=== PATIENT | female | born 1930 | race Caucasian/White ===

== ENCOUNTER → 2016-08-31 | Outpatient (CLI) | payer OTHER, BC ==
[~2016-08-31] MED LIST: ASPIR 8181 MG PO; CALCIUM 500 +1 EAC5 PO; CHLORDIAZEPOXIDE5 M2; COQ-10100 MG PO; COZAAR 50 MG TA50 M2; ESTER-C 500 MG1 EACH PO; FISH OIL 1,001000 M2 PO; FOSAMAX 70 MG T70 MG PO; GLUCOSAMINE &1 EAC1 PO; IMITREX 25 MG T25 M1 PO; LOPRESSOR25; MULTIVITAMINS1 EAC7 PO
== END ==
LOC: BC 01:55
DX: Z12.31 Encounter for screening mammogram for malignant neoplasm of breast (principal)

== ENCOUNTER → 2016-10-02 | Outpatient (CLI) | payer OTHER, BC | LOC: NUC 10:04 | DX: M81.0 Age-related osteoporosis without current pathological fracture (principal); Z78.0 Asymptomatic menopausal state; N91.2 Amenorrhea, unspecified ==

== ENCOUNTER 2017-01-02 12:46 | Inpatient (IN) | payer OTHER, BC ==
[~2017-01-02] VITALS: Ht 160 cm; Wt 56.2 kg
--- NOTE | ~2017-01-02 | EKG ---
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
[2017-01-02 13:00] VITALS: BP 168/84
[2017-01-02 13:52] LABS: URINE BILIRUBIN NEGATIVE (Negative); URINE BLOOD NEGATIVE (Negative); URINE COLOR YELLOW; URINE GLUCOSE-RANDOM* NEGATIVE (Negative); URINE KETONES NEGATIVE (Negative); URINE NITRITE NEGATIVE (Negative); URINE PROTEIN (DIPSTICK) NEGATIVE (Negative); URINE UROBILINOGEN 0.2 E.U./dl (0.2-1.0)
[2017-01-02 14:11] LABS: ABSOLUTE NEUTROPHILS 3.3 thou/uL (1.4-8.2); BASOPHILS 0.6 % (0.0-2.0); EOSINOPHILS 2.6 % (0.0-3.0); HEMOGLOBIN 14.5 gm/dL (12.0-15.0); LYMPHOCYTES 27.7 % (24.0-44.0); MANUAL DIFF NO; MCH 32.5 pg (26.0-34.0); MCHC 34.4 g/dL (28.0-37.0); MCV 94.6 fL (80.0-100.0); MONOCYTES 7.1 % (1.0-8.0); PLATELET COUNT 213 thou/uL (150-400); RBC 4.44 mil/uL (4.20-5.00); RDW 12.5 % (10.5-14.5); WBC 5.3 thou/uL (4.0-11.0)
[2017-01-02 14:18] LABS: ANION GAP 6 mmol/L (7-16); BUN 14 mg/dL (7-18); CALCIUM 9.9 mg/dL (8.5-10.1); CHLORIDE 95 mmol/L (98-107); CO2 30 mmol/L (21-32); CREATININE 0.6 mg/dL (0.6-1.0); GLUCOSE 85 mg/dL (74-106); POTASSIUM 4.2 mmol/L (3.5-5.1); SODIUM 131 mmol/L (136-145)
[2017-01-02 14:27] LABS: ALBUMIN 4.2 g/dL (3.4-5.0); ALKALINE PHOSPHATASE 64 U/L (46-116); SGOT 31 U/L (15-37); SGPT 29 U/L (30-65); TOTAL BILIRUBIN 0.6 mg/dL (<0.1-1.0); TOTAL PROTEIN 7.7 g/dL (6.4-8.2); TROPONIN-I < 0.04 ng/mL (<0.04-0.07)
[2017-01-02 15:07] VITALS: BP 168/84
[2017-01-02 17:00] VITALS: BP 174/85
[2017-01-02 20:25] VITALS: BP 161/77
[2017-01-03 01:10] VITALS: BP 123/71
[2017-01-03 05:29] VITALS: BP 134/80
[2017-01-03 06:47] LABS: HEMATOCRIT 39.8 % (37.0-47.0); HEMOGLOBIN 13.2 gm/dL (12.0-15.0); MCH 31.8 pg (26.0-34.0); MCHC 33.2 g/dL (28.0-37.0); MCV 95.8 fL (80.0-100.0); RBC 4.16 mil/uL (4.20-5.00); RDW 12.8 % (10.5-14.5); WBC 4.4 thou/uL (4.0-11.0)
[2017-01-03 07:06] LABS: ANION GAP 4 mmol/L (7-16); BUN 13 mg/dL (7-18); CALCIUM 8.6 mg/dL (8.5-10.1); CHLORIDE 100 mmol/L (98-107); CHOLESTEROL 158 mg/dL (<200); CO2 28 mmol/L (21-32); CREATININE 0.6 mg/dL (0.6-1.0); GLUCOSE 88 mg/dL (74-106); HDL CHOLESTEROL 61 mg/dL (>40); LDL CHOLESTEROL 89 mg/dL (<100); POTASSIUM 3.9 mmol/L (3.5-5.1); SODIUM 132 mmol/L (136-145); TC:HDL 2.6 Ratio (Not establshd); TRIGLYCERIDE 40 mg/dL (<150); VLDL 8 mg/dL (<40)
[2017-01-03 08:49] VITALS: BP 124/77
[2017-01-03 09:52] VITALS: BP 124/77
[2017-01-03 11:20] VITALS: BP 124/77
== END 2017-01-03 11:19 | disposition home or self-care (01) | DRG 69 ==
LOC: ER 12:46 → EROBS 15:41 → EDBD 15:41 → 3N 16:54
PROVIDERS: Hospitalist; Physician Assistant
DX: G45.9 Transient cerebral ischemic attack, unspecified (principal); R27.0 Ataxia, unspecified; I10 Essential (primary) hypertension; G43.909 Migraine, unspecified, not intractable, without status migrainosus; M81.0 Age-related osteoporosis without current pathological fracture; Z90.49 Acquired absence of other specified parts of digestive tract; Z88.2 Allergy status to sulfonamides; Z91.02 Food additives allergy status; Z79.82 Long term (current) use of aspirin; Z79.899 Other long term (current) drug therapy
CPT/HCPCS: 10096

== ENCOUNTER → 2017-09-20 | Outpatient (CLI) | payer OTHER, BC | LOC: RAD 09-06 11:06 → EDBD 01:53 | DX: Z12.31 Encounter for screening mammogram for malignant neoplasm of breast (principal) ==

== ENCOUNTER → 2017-10-11 | Outpatient (CLI) | payer OTHER, BC | LOC: NUC 06:37 → EDBD 06:37 → NUC 18:14 | DX: M85.89 Other specified disorders of bone density and structure, multiple sites (principal); M81.0 Age-related osteoporosis without current pathological fracture; Z78.0 Asymptomatic menopausal state ==

== ENCOUNTER 2017-12-26 09:27 | Emergency (ER) | payer OTHER, BC ==
[~2017-12-26] VITALS: Ht 160 cm; Wt 56.7 kg
[2017-12-26] MEDS ORDERED: MOBIC7.5 MG PO (11:21)
[2017-12-26] MEDS ORDERED: ULTRAM 50MG TAB50 MG PO (11:21)
== END 2017-12-26 11:53 | disposition home or self-care (01) ==
LOC: ER 09:27
DX: S39.012A Strain of muscle, fascia and tendon of lower back, initial encounter (principal); I10 Essential (primary) hypertension; G43.909 Migraine, unspecified, not intractable, without status migrainosus; M81.0 Age-related osteoporosis without current pathological fracture; Z90.89 Acquired absence of other organs; X50.0XXA Overexertion from strenuous movement or load, initial encounter; Y92.89 Other specified places as the place of occurrence of the external cause; Y93.89 Activity, other specified; Y99.8 Other external cause status

== ENCOUNTER 2018-08-22 12:13 | Emergency (ER) | payer OTHER, BC ==
[~2018-08-22] VITALS: Ht 160 cm; Wt 55.3 kg
[~2018-08-22 12:13] MED LIST changes: +MOBIC7.5 MG PO; +ULTRAM 50MG TAB50 MG PO
[2018-08-22 12:47] LABS: ABSOLUTE NEUTROPHILS 3.2 thou/uL (1.4-8.2); BASOPHILS 0.4 % (0.0-2.0); EOSINOPHILS 0.7 % (0.0-3.0); HEMATOCRIT 41.2 % (37.0-47.0); HEMOGLOBIN 13.6 gm/dL (12.0-15.0); LYMPHOCYTES 21.2 % (24.0-44.0); MCHC 33.1 g/dL (28.0-37.0); MCV 96.9 fL (80.0-100.0); MONOCYTES 6.3 % (1.0-8.0); PLATELET COUNT 209 thou/uL (150-400); POLYS 71.4 % (36.0-66.0); RBC 4.25 mil/uL (4.20-5.00); RDW 12.5 % (10.5-14.5); WBC 4.5 thou/uL (4.0-11.0)
[2018-08-22 13:02] LABS: ANION GAP 9 mmol/L (7-16); BUN 15 mg/dL (7-18); CALCIUM 9.4 mg/dL (8.5-10.1); CHLORIDE 98 mmol/L (98-107); CO2 27 mmol/L (21-32); CREATININE 0.6 mg/dL (0.6-1.0); GLUCOSE 127 mg/dL (74-106); POTASSIUM 3.5 mmol/L (3.5-5.1); SODIUM 134 mmol/L (136-145)
[2018-08-22 13:11] LABS: ALBUMIN 3.8 g/dL (3.4-5.0); SGOT 23 U/L (15-37); SGPT 27 U/L (30-65); TOTAL BILIRUBIN 0.4 mg/dL (<0.1-1.0); TOTAL PROTEIN 6.9 g/dL (6.4-8.2); TROPONIN-I <0.06 ng/mL (<0.06)
[2018-08-22 14:20] VITALS: BP 150/81
--- NOTE | 2018-08-22 23:49 | EKG ---
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 : 1930 Requested By: Mili Luna Order Number: [id number] MD: Bam Ventura Measurements Intervals [place] Rate: 66 P: 13 CA: 174 QRS: -2 QRSD: 129 T: 79 QT: 454 QTc: 476 Interpretive Statements Sinus rhythm Left bundle branch block Compared to ECG 01/02/2017 13:14:50 No significant changes Electronically Signed On 08-22-2018 23:49:08 CDT by Bam Ventura [email or web address] ��������������������������������������������� <ELECTRONICALLY SIGNED> ���������������������������������������� By: Bam Ventura MD ��������������������������������������������� 08/22/18 2349 1244 1244 Bam Ventura MD /CHEYENNE
== END 2018-08-22 14:20 | disposition home or self-care (01) ==
LOC: ER 12:13
PROVIDERS: Nurse Practitioner Family
DX: I10 Essential (primary) hypertension (principal); G43.909 Migraine, unspecified, not intractable, without status migrainosus; M81.0 Age-related osteoporosis without current pathological fracture; Z90.49 Acquired absence of other specified parts of digestive tract; Z88.2 Allergy status to sulfonamides; Z91.018 Allergy to other foods

== ENCOUNTER → 2018-10-10 | Outpatient (CLI) | payer OTHER, BC | LOC: BC 11:02 | DX: Z12.31 Encounter for screening mammogram for malignant neoplasm of breast (principal) ==

== ENCOUNTER → 2018-11-25 | Outpatient (CLI) | payer OTHER, BC | LOC: RAD 08:43 | DX: R05 Cough (principal) ==

== ENCOUNTER → 2019-04-05 | Outpatient (CLI) | payer OTHER, BC | LOC: NUC 03-29 14:35 | DX: M81.0 Age-related osteoporosis without current pathological fracture (principal); M85.88 Other specified disorders of bone density and structure, other site; Z78.0 Asymptomatic menopausal state ==

== ENCOUNTER → 2019-06-13 | Outpatient (CLI) | payer OTHER, BC | LOC: MRI 12:14 | DX: M47.816 Spondylosis without myelopathy or radiculopathy, lumbar region (principal); M41.86 Other forms of scoliosis, lumbar region; M43.16 Spondylolisthesis, lumbar region; M51.35 Other intervertebral disc degeneration, thoracolumbar region; M51.26 Other intervertebral disc displacement, lumbar region; M48.061 Spinal stenosis, lumbar region without neurogenic claudication; M51.27 Other intervertebral disc displacement, lumbosacral region; M47.817 Spondylosis without myelopathy or radiculopathy, lumbosacral region; M48.07 Spinal stenosis, lumbosacral region ==

== ENCOUNTER → 2019-07-19 | Outpatient (CLI) | payer OTHER, BC | LOC: SJCVC 10:08 | DX: I44.7 Left bundle-branch block, unspecified (principal); R94.31 Abnormal electrocardiogram [ECG] [EKG]; I10 Essential (primary) hypertension; R55 Syncope and collapse; E78.5 Hyperlipidemia, unspecified; M81.0 Age-related osteoporosis without current pathological fracture; Z79.899 Other long term (current) drug therapy ==

== ENCOUNTER → 2019-10-17 | Outpatient (CLI) | payer OTHER, BC ==
[~2019-10-17] VITALS: Ht 160 cm; Wt 51.7 kg
[~2019-10-17] MED LIST changes: +AVAPRO300 MG PO; +BENTYL 10 MG CA10 MG PO; +CHLORDIAZEPOXID25 M1 PO; -CHLORDIAZEPOXIDE5 M2; -COZAAR 50 MG TA50 M2; +PROBIOTIC1 EAC7 PO; +TYLENOL325 MG PO
[2019-10-17 10:15] VITALS: BP 138/80
--- NOTE | 2019-10-17 10:33 | NUR ---
Pain Clinic Assessment: 1. History of Osteoarthritis: SPINAL Right Lower Extremity Left Lower Extremity Left Upper Extremity Right Upper Extremity History of Rheumatoid Arthritis: Not Applicable 2. Height: 5 ft. 3 in. 160.0 cm. Weight: 114.0 lb. oz. 51.710 kg. Patient's BMI: 20.2 3. Vital Signs: BP: 138/80 Pulse: 73 Resp: 14 Temp: 02 Sat: 100 ECG Mon: 4. Pain Intensity: 3 NOW, 9 BY EVENING 5. Fall Risk: Dizziness: Y Needs help standing or walking: N Fallen in the last 3 months: N Fall risk comments: 6. Patient on Blood Thinner: None 7. History of Hypertension: Y 8. Opioid Therapy greater than 6 weeks: N Opiate Contract Signed: 9. Risk Assessment Tool Provided: 10. Functional Assessment Tool: 11. Recreational Drug Use: Never Drug Type: Tobacco Use: Never Smoker Tobacco Type: Amount or Packs/day: How Many Years: Alcohol Use: Yes Frequency: Monthly Quant: 1
--- NOTE | 2019-10-17 15:31 | HPC ---
[facility] [place] [address] PAIN MANAGEMENT CONSULTATION Name: RASHAD OLIVER Room #: REG RAMOS [facility].#: [id number] Admission: 10/17/19 Attend Phys: Kenton Bhatia DO Discharge: Date of : 34 Report #: [id number] THIS REPORT FOR: cc: Damon Wynne Steven F. DO Johnson, James E. DO ~ DATE OF SERVICE: 10/17/2019 REFERRING PHYSICIAN: Dr. Wynne. CHIEF COMPLAINT: Low back pain, right lower extremity pain with paresthesias. HISTORY OF PRESENT ILLNESS: As you know, the patient is a very pleasant 89-year-old female who reports a longstanding history of low back pain, right lower extremity pain that began 05/27/2019. The patient denies any injury or trauma that may have led to symptom development. She states she has trialed conservative options including rest, relaxation and changes in her daily lifestyle. Unfortunately, this did not improve her overall pain. She sought evaluation through her primary care physician who placed the patient on nonsteroidal anti-inflammatories, muscle relaxants and exercise and heat with minimal improvement. The fact the patient did not improve ultimately led to MRI of the lumbar spine. The patient had the MRI completed 06/13/2019 and advised that options for treatment would include pain medication management. She was subsequently referred to our clinic. The patient reports today pain is continuous, steady and constant with intermittent exacerbations of symptoms up to a level of 9/10. She describes the pain as sharp, stabbing, numbness and tingling. Places current pain score 3/10, daily average of 2-9/10 worst pain has been is 9/10. The patient states that pain is exacerbated with "being idle". She states that pain is improved with walking, exercises and the use of direct pressure over the painful sites. She has been referred to our service to discuss treatment options for lumbar radiculopathy. PAST MEDICAL HISTORY: 1. Hypertension. 2. Dyslipidemia. PAST SURGICAL HISTORY: 1. Appendectomy. 2. Knee arthroscopy. 3. Tonsillectomy. 4. Open reduction and internal fixation of a wrist fracture. SOCIAL HISTORY: The patient denies tobacco, IV or illicit drug use. Denies any chronic alcohol use. 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 She is not receiving workmen's compensation nor is she trying to obtain [address] [address] PAIN MANAGEMENT CONSULTATION Name: RASHAD OLIVER [id number] Admission: 10/17/19 Attend Phys: Kenton Bhatia DO Discharge: Date of : 34 Report #: [id number] disability benefits. She is unaccompanied at today's visit. REVIEW OF SYSTEMS: Positive for intermittent headaches, wearing corrective eyewear, hypertension, frequent urination, nocturia, numbness and tingling sensations, tremors. All other review of systems is negative per 12-point review of systems other than those listed in history of present illness. Pain impact score 17 of 70 indicating mild interference of daily activities secondary to pain. ALLERGIES: CITALOPRAM, LISINOPRIL, AND SULFA. CURRENT MEDICATIONS: Calcium carbonate 600 mg twice a day, Librium 5 mg t.i.d. Coenzyme Q10 30 mg once a day, cyclobenzaprine 10 mg t.i.d., Bentyl 10 mg at bedtime, omega-3 fish oil 1 tab per day, glucosamine chondroitin 1 tab per day, irbesartan 300 mg once a day, meloxicam 7.5 mg twice a day, metoprolol XL 25 mg once a day, multivitamin 1 tab per day, probiotic 1 tab per day, sumatriptan 50 mg p.r.n. IMAGING: MRI of the lumbar spine obtained 06/13/2019 shows diffuse severe lumbar spondylosis, most significant at the L3-L4, L4-L5 and L5-S1 levels. There is some dextroscoliosis noted, but this is not significant. There is grade 1 spondylolisthesis of L3 on L4 and L4 on L5. There does not appear to be pars intraarticularis fractures. There is a noted severe central canal stenosis at the L4-L5 level. PQRS: The patient has known osteoarthritic changes of the lumbar spine, right hip, left hip, left knee, right knee and bilateral upper extremities including the hands, the shoulders. No rheumatoid arthritis. She is placing pain intensity today 3/10, daily average up to 9/10. She is not a fall risk, has not had a fall in last 3 months. She is not on blood thinners, but is treated for hypertension. She is not on chronic opioids and has a low opioid addiction potential. Pain impact score 17 of 70, mild interference of daily activities secondary to pain. PHYSICAL EXAMINATION: VITAL SIGNS: Blood pressure 138/80, pulse is 73, respiratory rate 14 and unlabored. The patient is 100% on room air. Height 5 feet 3 inches tall, weight 114 pounds, BMI calculated 20.2. GENERAL: Well-developed, well-nourished, well-hydrated, 89-year-old female. She appears her stated age. She is in no acute distress, awake, alert and oriented x 3, pain is rated today 3/10. HEENT: Normocephalic, atraumatic. Pupils equal, round, reactive to light. Extraocular muscles are intact. Sclerae nonicteric without injection. NEUROLOGIC: Cranial nerves 2-12 grossly intact. Speech is fluent. The patient deemed an excellent historian. [facility] [address] [place] [address] PAIN MANAGEMENT CONSULTATION Name: RASHAD OLIVER Room #: REG RAMOS Johnson#: [id number] Admission: 10/17/19 Attend Phys: Kenton Bhatia DO Discharge: Date of : 32 Report #: [id number] LUNGS: Clear. No wheeze, rhonchi, no rales. The patient is able to complete all sentences without a sensation of shortness of air. There is no cough and no stridor or retractions. CARDIOVASCULAR: Regular. No appreciable gallop, no rub. ABDOMEN: Soft, nontender, nondistended. EXTREMITIES: Show no clubbing, no cyanosis, no edema. There is noted arthritic changes of bilateral hands, mainly involving the DIPs, MIPs and the PIPs. MUSCULOSKELETAL: Lower extremity strength appears equal and symmetrical 5/5. Muscle bulk and tone is equal and symmetrical in comparing left lower extremity to right. Seated straight leg raising is negative. Supine straight leg raising positive on the right, negative left. Gait is mildly antalgic favoring right lower extremity. Ankle clonus negative. Babinski is negative. Modified Gaenslen's positive for axial low back pain. Lumbar provocation testing including extension and rotation to the right cause intensification of pain. Forward flexion of the lumbar spine causes no symptoms generation. ASSESSMENT: 1. Symptomatic lumbar radiculopathy. 2. Severe central canal stenosis of lumbar spine. 3. Displacement of lumbar intervertebral disk with radiculopathy. 4. Spondylolisthesis of L3 on L4 and L4 on L5. 5. Lumbosacral spondylosis with radiculopathy. 6. Lumbar degeneration. 7. Chronic intractable pain. PLAN: 1. Based on today's physical exam and the history the patient has provided, the description the patient uses in regards to pain as well as location of symptoms, likely source of the patient's pain is a lumbar radiculopathy. The patient and I discussed the findings of her physical exam and correlated those findings to the MRI from 05/2019. It would appear the patient's symptoms are related to the central canal stenosis at the L4-L5 level given the distribution of symptoms today. We discussed with the patient the treatment options for central canal stenosis and subsequent lumbar radiculopathy. The following was discussed with the patient today. The patient and I discussed treatment options, which would include physical therapy, stretching exercises and core strengthening as a treatment option. The patient is very active, walking up to a mile and mile and a half a day and does do some light stretching and weightbearing exercises. She will continue this activity. We discussed medication management adding neuropathic pain medications in the form of nortriptyline, amitriptyline, Cymbalta, Lyrica or gabapentin as a possible treatment option. We also discussed lumbar epidural injections under fluoroscopic guidance, spinal cord stimulator therapy and ultimately surgical decompression. After reviewing the risks and benefits of all the proposed treatment options, the patient chose to move forward with the [facility] [address] [place] [address] PAIN MANAGEMENT CONSULTATION Name: RASHAD OLIVER Room #: REG RAMOS Johnson#: [id number] Admission: 10/17/19 Attend Phys: Kenton Bhatia DO Discharge: Date of : 32 Report #: [id number] lumbar epidural injection under fluoroscopic guidance. 2. The patient was advised risks and benefits of a lumbar epidural injection. These risks include but are not necessarily limited to; bleeding, bruising, infection, worsening of pain, no relief of pain, temporary or permanent muscle weakness, temporary or permanent nerve damage, possible paralysis and . The patient states understood and wished to proceed. The patient was also advised of the risks she would have to accept in regards to COVID-19 and epidural injections. It has been shown in the literature that epidural injections can reduce ones' immune response secondary to the steroids. This could place the patient at higher risk of contraction of the COVID-19. She was also advised that if she has symptoms of COVID present and steroid exposure is made that she may see worsening of her symptoms. She states she understands the risks in regards to COVID-19 and wishes to proceed. 3. No medication changes made at today's visit. The patient was advised to continue current medications as previously prescribed. 4. We will see the patient back in followup visit in approximately 30 days. At that time, review the efficacy of today's epidural injection and determine if next in the series of epidural injections would be recommended. 5. We wish to thank Dr. Wynne for the referral of this patient to our clinic. We will keep you apprised of her response to treatment as we address her lumbar radicular symptoms secondary to her central canal stenosis. Again, we wish to thank you for the opportunity to see the patient in consultation. PROCEDURE NOTE DESCRIPTION OF PROCEDURE: L5-S1 paramedian epidural steroid injection under fluoroscopic guidance. This is the first procedure of the first series that the patient is undergoing. After obtaining written consent, the patient was taken back to the fluoroscopy suite, placed in a prone position with pillow under the abdomen to decrease lumbar lordosis. The skin overlying the lumbosacral area was then prepped and draped in aseptic fashion. The L5-S1 vertebral interspace was then identified by AP fluoroscopy. The skin and subcutaneous tissue overlying the target site of injection was anesthetized with 3 mL 1% lidocaine. A(n) 20 gauge 3.5 inch Tuohy needle was then advanced under fluoroscopic guidance towards the epidural space using a right paramedian approach. The epidural space was identified using loss of resistance to air technique. After negative aspiration for heme or cerebrospinal fluid, a total of 1 mL of Omnipaque was injected. A lumbar epidurogram was confirmed using both AP and lateral fluoroscopy. After negative aspiration for heme or cerebrospinal fluid, 5 mL of solution containing 2 mL 40 mg per mL, 80 mg total triamcinolone along with 3 mL lidocaine 1% was injected in increments. Contrast spread was noted [address] [address] PAIN MANAGEMENT CONSULTATION Name: RASHAD OLIVER RENTON Room #: REG CLI Elizabeth#: [id number] Admission: 10/17/19 Attend Phys: Kenton Bhatia DO Discharge: Date of : 32 Report #: [id number] posterior epidural space. The needle was then retracted approximately half way and needle tract flushed with 1 mL of 1% lidocaine. Needle was then removed. There were no apparent sensory or motor deficits in the lower extremity following the procedure. A sterile bandage was placed over the injection site. The heart rate, pulse, oximetry and blood pressure were continuously monitored after the procedure. There were no apparent complications. The patient tolerated the procedure well and was carefully escorted to the recovery room in stable condition. There were no apparent complications. After meeting discharge criteria, the patient was then discharged home. <ELECTRONICALLY SIGNED> By: Kenton Bhatia DO 10/17/19 1531 1201 1315 Kenton Bhatia DO /nt
== END | disposition home or self-care (01) ==
LOC: PAIN 06:50
DX: M51.16 Intervertebral disc disorders with radiculopathy, lumbar region (principal); M48.061 Spinal stenosis, lumbar region without neurogenic claudication; M47.27 Other spondylosis with radiculopathy, lumbosacral region; M43.16 Spondylolisthesis, lumbar region; G89.29 Other chronic pain; I10 Essential (primary) hypertension; E78.5 Hyperlipidemia, unspecified; M19.90 Unspecified osteoarthritis, unspecified site; Z90.49 Acquired absence of other specified parts of digestive tract; Z98.890 Other specified postprocedural states; Z79.899 Other long term (current) drug therapy; Z88.2 Allergy status to sulfonamides; Z88.8 Allergy status to other drugs, medicaments and biological substances

== ENCOUNTER → 2019-11-08 | Outpatient (CLI) | payer OTHER, BC | LOC: BC 08:46 | PROVIDERS: ATTEND Neuromusculoskeletal Medicine & OMM | DX: Z12.31 Encounter for screening mammogram for malignant neoplasm of breast (principal) ==

== ENCOUNTER → 2019-11-21 | Outpatient (CLI) | payer OTHER, BC ==
[~2019-11-21] VITALS: Ht 160 cm; Wt 51.4 kg
[2019-11-21 14:29] VITALS: BP 145/82
--- NOTE | 2019-11-21 14:41 | NUR ---
Pain Clinic Assessment: 1. History of Osteoarthritis: SPINAL Right Lower Extremity Left Lower Extremity Left Upper Extremity Right Upper Extremity History of Rheumatoid Arthritis: Not Applicable 2. Height: 5 ft. 3 in. 160.0 cm. Weight: 113.4 lb. oz. 51.438 kg. Patient's BMI: 20.1 3. Vital Signs: BP: 145/82 Pulse: 65 Resp: 14 Temp: 02 Sat: 100 ECG Mon: 4. Pain Intensity: 5 IN AM 1 MOST OF DAY 5. Fall Risk: Dizziness: N Needs help standing or walking: N Fallen in the last 3 months: N Fall risk comments: 6. Patient on Blood Thinner: None 7. History of Hypertension: Y 8. Opioid Therapy greater than 6 weeks: N Opiate Contract Signed: 9. Risk Assessment Tool Provided: 10. Functional Assessment Tool: 11. Recreational Drug Use: Never Drug Type: Tobacco Use: Never Smoker Tobacco Type: Amount or Packs/day: How Many Years: Alcohol Use: Yes Frequency: Quant:
--- NOTE | 2019-11-22 11:38 | HPC ---
[facility] [address] [place] [address] PAIN MANAGEMENT CONSULTATION Name: RASHAD OLIVER Room #: REG Lashay Andrew.#: [id number] Admission: 11/21/19 Attend Phys: Kenton Bhatia DO Discharge: Date of : 32 Report #: [id number] THIS REPORT FOR: cc: Damon Wynne Steven F. DO Johnson, James E. DO ~ DATE OF SERVICE: 11/21/2019 REFERRING PHYSICIAN: Damon Wynne MD CHIEF COMPLAINT: Low back pain, right lower extremity pain and paresthesias. HISTORY OF PRESENT ILLNESS: As you know, the patient is a very pleasant 89-year-old female who returns today in followup visit reporting pain scores of 1/10. She states her pain begins at 5/10 due to facet arthropathy as she arises from bed in the morning. This soon resolves down to a level of 1/10 consistent with facet arthropathy of the lumbar spine. She was seen in consultation due to lumbar radicular symptoms where she was reporting pain score all the way up to 9/10 and underwent a lumbar epidural injection with a reduction of pain all the way down to 1/10. She returns today in followup visit requesting to undergo the next in the series of lumbar epidural injections to address residual pain. The patient and I did discuss at this visit and at prior visit that she can receive 3 epidural injections in a 6-month period. She understands those limitations, but wishes to use the second in the series of epidural injections to address this residual 1/10 pain. She is also complaining of facet arthropathy pain based on her reports of symptoms starting in the morning and improves with movement and some stretching that is consistent with facet arthropathy pain for which she places pain at morning 5/10. She takes no anti-inflammatories. She returns today for a lumbar epidural injection and discuss this ongoing facet arthropathy pain. ALLERGIES: CITALOPRAM, LISINOPRIL, SULFA. CURRENT MEDICATIONS: See chart. SOCIAL HISTORY: The patient denies tobacco, IV or illicit drug use. Denies any chronic alcohol use. 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 She retired about 18 years ago, unaccompanied today. IMAGING: No new imaging available. PQRS: The patient has known arthritic changes of the lumbar spine, right hip and left hip, left knee and right knee, bilateral upper extremities including the bilateral hands and shoulders. No rheumatoid arthritis. She is placing pain intensity today at 1/10. She is not a fall risk, [place] [address] PAIN MANAGEMENT CONSULTATION Name: RASHAD OLIVER HOMOSASSA Room #: REG RAMOS Johnson#: [id number] Admission: 11/21/19 Attend Phys: Kenton Bhatia DO Discharge: Date of : 32 Report #: [id number] last 3 months. She is not on blood thinners, but is treated for hypertension. She is not on opioids and has a low opiate addiction potential. Pain impact today indicating mild interference of daily activities secondary to pain. PHYSICAL EXAMINATION: VITAL SIGNS: Blood pressure 145/82, pulse 65, respiratory rate 14 and unlabored. The patient is 100% on room air. Height 5 feet 3 inches tall, weight 113.4 pounds, BMI calculated 20.1. GENERAL: Well-developed, well-nourished, well-hydrated 89-year-old female appearing stated age, pain is rated today 1/10. HEENT: Normocephalic, atraumatic. Pupils equal, round and speech is fluent. EXTREMITIES: Show no clubbing, no cyanosis, no edema. MUSCULOSKELETAL: Lower extremity strength appears symmetrical 5/5, intact to light touch from L1 through S2 dermatomes. Seated straight leg raising negative. Supine straight leg raising is positive on the right. Gait is normal. Ankle clonus negative. Babinski is negative. Lumbar provocation testing is met with increasing axial back pain mainly with extension, rotation, lateral flexion consistent with facet arthropathy. ASSESSMENT: 1. Symptomatic lumbar radiculopathy. 2. Severe central canal stenosis of lumbar spine. 3. Displacement of lumbar intervertebral disk with radiculopathy. 4. 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 5. Lumbosacral spondylosis with radiculopathy. 6. Lumbar degeneration. 7. Facet arthropathy of the lumbar spine. 8. Chronic intractable pain. PLAN: 1. The patient returns today in followup visit having noted significant pain improvement with the epidural injection provided at last visit. She has gone from an 8-02/07 to 06/09. She is very pleased with response to this injection, returning today in followup visit requesting to undergo next in the series of epidural injections to address residual pain. She has been advised risks and benefits of the procedure, states she understood and wished to proceed. I did advise the patient this is the second in series of epidural injections leaving us with only 1 remaining epidural injection to be provided for the next 5 months. The patient states she understands and wishes to proceed. 2. The patient is explaining symptoms that are exacerbated upon arising in the morning. This last for approximately 5-10 minutes until she is able to move about consistent with facet arthropathy pain. We recommend nonsteroidal anti-inflammatories for use at night to provide analgesic benefit for morning hours. She will follow up with her PCP in regards to this issue. Given her age, we would have to watch for renal function, also, any potential bleeding risks. We will defer to the primary team to start any type of anti-inflammatory [facility] [address] [place] [address] PAIN MANAGEMENT CONSULTATION Name: RASHAD OLIVER HOMOSASSA Room #: REG RAMOS Johnson#: [id number] Admission: 11/21/19 Attend Phys: Kenton Bhatia DO Discharge: Date of : 32 Report #: [id number] medication if they feel necessary. Given the fact that her symptoms are only transient in the morning hours I would not necessarily begin a long-term medication management or interventional treatment course given the fact that her symptoms resolve completely throughout the day. 3. We will see the patient back in followup visit for the next in the series of lumbar epidural injections. We are pleased to see the patient did so well with the initial injection and hopeful to see prolonged benefit with the second in the series. PROCEDURE NOTE: DESCRIPTION of PROCEDURE: L5-S1 paramedian epidural steroid injection under fluoroscopic guidance. This is the second procedure of the first series that the patient is undergoing. After obtaining written consent, the patient was taken back to the fluoroscopy suite, placed in a prone position with pillow under the abdomen to decrease lumbar lordosis. The skin overlying the lumbosacral area was then prepped and draped in aseptic fashion. The L5-S1 vertebral interspace was then identified by AP fluoroscopy. The skin and subcutaneous tissue overlying the target site of injection was anesthetized with 3 mL 1% lidocaine. A 3.5" Tuohy needle was then advanced under fluoroscopic guidance towards the epidural space using a right paramedian approach. The epidural space was identified using loss of resistance to air technique. After negative aspiration for heme or cerebrospinal fluid, a total of 1 mL of Omnipaque was injected. A lumbar epidurogram was confirmed using both AP and lateral fluoroscopy. After negative aspiration for heme or cerebrospinal fluid, 5 mL of a solution containing 2 mL 40 mg per mL, 80 mg total triamcinolone along with 3 mL lidocaine 1% was injected in increments. Contrast spread was noted in posterior epidural space. The needle was then retracted approximately half way and needle tract flushed with 1 mL of 1% lidocaine. Needle was then removed. There were no apparent sensory or motor deficits in the lower extremity following the procedure. A sterile bandage was placed over the injection site. The heart rate, pulse, oximetry and blood pressure were continuously monitored after the procedure. There were no apparent complications. The patient tolerated the procedure well and was carefully escorted to the recovery room in stable condition. There were no apparent complications. After meeting discharge criteria, the patient was then discharged home. <ELECTRONICALLY SIGNED> By: Kenton Bhatia DO 11/22/19 1138 1602 1752 Kenton Bhatia DO /nt
== END | disposition home or self-care (01) ==
LOC: PAIN 06:53
PROVIDERS: ATTEND Anesthesiology Pain Medicine
DX: M51.16 Intervertebral disc disorders with radiculopathy, lumbar region (principal); M47.27 Other spondylosis with radiculopathy, lumbosacral region; M47.26 Other spondylosis with radiculopathy, lumbar region; M48.061 Spinal stenosis, lumbar region without neurogenic claudication; G89.29 Other chronic pain; I10 Essential (primary) hypertension; M19.90 Unspecified osteoarthritis, unspecified site; Z98.890 Other specified postprocedural states; Z79.899 Other long term (current) drug therapy; Z88.8 Allergy status to other drugs, medicaments and biological substances

== ENCOUNTER → 2020-01-18 | Outpatient (CLI) | payer OTHER, BC | LOC: SJCVC 10:45 | PROVIDERS: ATTEND Internal Medicine | DX: R94.31 Abnormal electrocardiogram [ECG] [EKG] (principal); I49.49 Other premature depolarization; I10 Essential (primary) hypertension; E78.5 Hyperlipidemia, unspecified; I44.7 Left bundle-branch block, unspecified; Z79.899 Other long term (current) drug therapy ==

== ENCOUNTER 2020-07-12 15:49 | Inpatient (IN) | payer OTHER, BC ==
[~2020-07-12] VITALS: Ht 160 cm; Wt 54.0 kg
[2020-07-12 15:49] VITALS: BP 179/87
[2020-07-12 16:29] LABS: ABSOLUTE NEUTROPHILS 4.1 thou/uL (1.4-8.2); BASOPHILS 0.4 % (0.0-2.0); EOSINOPHILS 0.6 % (0.0-3.0); HEMATOCRIT 41.8 % (37.0-47.0); HEMOGLOBIN 13.6 gm/dL (12.0-15.0); LYMPHOCYTES 20.8 % (24.0-44.0); MCH 31.8 pg (26.0-34.0); MCHC 32.6 g/dL (28.0-37.0); MCV 97.5 fL (80.0-100.0); MONOCYTES 6.5 % (1.0-8.0); PLATELET COUNT 271 thou/uL (150-400); POLYS 71.7 % (36.0-66.0); RBC 4.29 mil/uL (4.20-5.00); RDW 12.1 % (10.5-14.5); WBC 5.7 thou/uL (4.0-11.0)
[2020-07-12 16:33] LABS: ANION GAP 5 mmol/L (7-16); BUN 27 mg/dL (7-18); CALCIUM 9.6 mg/dL (8.5-10.1); CHLORIDE 92 mmol/L (98-107); CO2 29 mmol/L (21-32); CREATININE 0.8 mg/dL (0.6-1.0); GLUCOSE 109 mg/dL (74-106); POTASSIUM 3.8 mmol/L (3.5-5.1); SODIUM 126 mmol/L (136-145)
[2020-07-12 16:43] LABS: LIPASE 75 U/L (73-393); SGOT 24 U/L (15-37); SGPT 31 U/L (14-59); TOTAL BILIRUBIN 0.5 mg/dL (0.2-1.0); TROPONIN-I <0.06 ng/mL (<0.06)
[2020-07-12 16:48] LABS: URINE BILIRUBIN NEGATIVE (Negative); URINE BLOOD TRACE (Negative); URINE CLARITY CLOUDY; URINE COLOR YELLOW; URINE GLUCOSE-RANDOM* NEGATIVE (Negative); URINE KETONES NEGATIVE (Negative); URINE LEUKOCYTES-REFLEX NEGATIVE (Negative); URINE NITRITE-REFLEX NEGATIVE (Negative); URINE PROTEIN (DIPSTICK) NEGATIVE (Negative); URINE UROBILINOGEN 0.2 E.U./dl (0.2-1.0)
[2020-07-12 18:13] VITALS: BP 179/108
--- NOTE | 2020-07-12 18:26 | NUR ---
ATTEMPTED TO CALL REPORT, WAITED ON HOLD FOR 4 MINUTES, WILL HAVE PT. ITZEL UP TO FLOOR.
[2020-07-12 18:28] VITALS: BP 179/108
[2020-07-12 19:17] LABS: FOLIC ACID 44.6 ng/mL (8.6-58.9)
[2020-07-12 19:59] VITALS: BP 174/88
[2020-07-12] MEDS ORDERED: CHLORTHALIDONE25 MG PO (20:04)
[2020-07-12 21:30] VITALS: BP 100/44
[2020-07-12 22:16] VITALS: BP 121/64
[2020-07-13 00:04] VITALS: BP 151/73
--- NOTE | 2020-07-13 03:20 | NUR ---
ASSUMED CARE OF PT FROM ER AT 1845HRS. PT IS AOX4 AND LETS NEEDS BE KNOWN. FALL PRECAUTION IN PLACE FOR SAFETY BUT PT IS ABLE TO AMBULATE WITH SBA. PT WAS ORIENTED TO THE UNIT AND HER ROOM. ORDERS RECEIVED AND STARTED. PT WAS ABLE TO ANSWER ALL ADMISSION RELATED QUESTIONS. PT REPORTS ABDOMIAL PAIN AND NAUSEA. PRNS PROVIDED. NO EMISIS NOTED. PT S NPO. PT HAD ELEVATED BP AND PRNS WERE PROVIDED. WILL CONTINUE TO MONITOR FOR CHANGES.
[2020-07-13 03:55] VITALS: BP 122/59
[2020-07-13 06:17] LABS: ABSOLUTE NEUTROPHILS 6.1 thou/uL (1.4-8.2); BASOPHILS 0.2 % (0.0-2.0); HEMATOCRIT 40.4 % (37.0-47.0); HEMOGLOBIN 13.3 gm/dL (12.0-15.0); LYMPHOCYTES 8.6 % (24.0-44.0); MCH 31.8 pg (26.0-34.0); MCHC 32.9 g/dL (28.0-37.0); MCV 96.9 fL (80.0-100.0); MONOCYTES 2.2 % (1.0-8.0); PLATELET COUNT 263 thou/uL (150-400); RBC 4.16 mil/uL (4.20-5.00); RDW 12.3 % (10.5-14.5); WBC 6.9 thou/uL (4.0-11.0)
[2020-07-13 06:36] LABS: CALCIUM 9.1 mg/dL (8.5-10.1); CREATININE 0.6 mg/dL (0.6-1.0); MAGNESIUM 2.1 mg/dL (1.8-2.4); POTASSIUM 3.5 mmol/L (3.5-5.1)
[2020-07-13 08:43] VITALS: BP 135/66
--- NOTE | 2020-07-13 09:56 | NUR ---
ASSUMED CARE OF PATIENT AT 0700 PT IS ALERT XS 4 NPO BUT MAY HAVE ICE CHIPS. PT W/O PAIN WALKED THE UNIT WITH THERAPY HAS STEADY GAIT. PT CONT OF BLADDER USES BSC OR WALKS TO BATHROOM. HAD BOWEL MOVEMENT YESTERDAY MORNING. PT IS PLEASANT AND COOPERATIVE WITH CARE.
[2020-07-13 15:29] VITALS: BP 144/77
[2020-07-13 19:30] VITALS: BP 149/55
[2020-07-14 05:00] VITALS: BP 124/63
--- NOTE | 2020-07-14 05:39 | NUR ---
PT AMBULATING TO BATHROOM INDEPENDENTLY AND IS TOLERATING WELL. DENIES PAIN. DENIES NAUSEA. RESTING COMFORTABLY. NO NEEDS VOICED. CALL LIGHT WITHIN REACH. FREQUENT OBSERVATION.
[2020-07-14 07:55] VITALS: BP 176/84
--- NOTE | 2020-07-14 14:30 | NUR ---
PT ASSESSED AT START OF SHIFT. FEELING MUCH BETTER. NO ABD PAIN. EATING AND DRINKING SOLID FOOD. PASSING FLATUS AND STOOL. DR. MARTIN IN AND STATED PT READY FOR DISCHARGE. PT DISCHARGED HOME W/ ALL BELONGINGS.
[2020-07-14 15:22] VITALS: BP 176/84
--- NOTE | 2020-07-15 10:22 | EKG ---
[address] [place] [address] ELECTROCARDIOGRAM REPORT Name: RASHAD OLIVER Room #: 448-P [facility].#: [id number] Admission: 07/12/20 Attend Phys: Juan Jose Nascimento MD Discharge: 07/14/20 Date of : 32 Report #: [id number] [facility] ED Test Date: 2020-07-12 Test Time: 16:36:21 Pat Name: RASHAD OLIVER Department: Room: [facility] Gender: F Hourly Manager: david : 1930 Requested By: Robby Norton Order Number: [id number] MD: Say Reeves Measurements Intervals [place] Rate: 62 P: 75 WI: 192 QRS: -18 QRSD: 130 T: 138 QT: 443 QTc: 450 Interpretive Statements Sinus rhythm Left bundle branch block Compared to ECG 08/22/2018 12:44:27 No significant changes Electronically Signed On 07-15-2020 10:21:49 PROGRESSIVE CARE UNIT REGISTERED NURSE by Say Reeves [email or web address] <ELECTRONICALLY SIGNED> By: Say Reeves MD, [facility] 07/15/20 1021 1636 35 Say Reeves MD, FACC /EPI
== END 2020-07-14 17:33 | disposition home or self-care (01) | DRG 389 ==
LOC: ER 15:49 → EROBS 18:04 → 4S 18:33
PROVIDERS: Emergency Medicine; Nurse Practitioner; ADMIT Hospitalist; ATTEND Hospitalist
DX: K56.600 Partial intestinal obstruction, unspecified as to cause (principal); E87.1 Hypo-osmolality and hyponatremia; I10 Essential (primary) hypertension; Z20.822 Contact with and (suspected) exposure to COVID-19; Z90.49 Acquired absence of other specified parts of digestive tract; Z79.899 Other long term (current) drug therapy; Z88.2 Allergy status to sulfonamides; Z88.8 Allergy status to other drugs, medicaments and biological substances; Z91.018 Allergy to other foods
CPT/HCPCS: 10195

== ENCOUNTER → 2020-07-22 | Outpatient (CLI) | payer OTHER, BC ==
[~2020-07-22] MED LIST changes: +CHLORTHALIDONE25 MG PO
== END ==
LOC: SJCVCIMAG 09:37
PROVIDERS: ATTEND Internal Medicine
DX: R94.31 Abnormal electrocardiogram [ECG] [EKG] (principal); I08.8 Other rheumatic multiple valve diseases; I44.7 Left bundle-branch block, unspecified; I10 Essential (primary) hypertension; R55 Syncope and collapse; E78.5 Hyperlipidemia, unspecified; M81.0 Age-related osteoporosis without current pathological fracture; E55.9 Vitamin D deficiency, unspecified; E78.00 Pure hypercholesterolemia, unspecified; G43.909 Migraine, unspecified, not intractable, without status migrainosus; F41.9 Anxiety disorder, unspecified; Z72.89 Other problems related to lifestyle; Z79.899 Other long term (current) drug therapy; Z88.8 Allergy status to other drugs, medicaments and biological substances; Z88.2 Allergy status to sulfonamides; Z88.1 Allergy status to other antibiotic agents

== ENCOUNTER → 2020-11-15 | Outpatient (CLI) | payer OTHER, BC | LOC: BC 10:48 | PROVIDERS: ATTEND Neuromusculoskeletal Medicine & OMM | DX: Z12.31 Encounter for screening mammogram for malignant neoplasm of breast (principal) ==

== ENCOUNTER → 2021-03-31 | Outpatient (CLI) | payer OTHER, BC | LOC: SJCVC 11:40 | PROVIDERS: ATTEND Internal Medicine | DX: R94.31 Abnormal electrocardiogram [ECG] [EKG] (principal); R55 Syncope and collapse; I10 Essential (primary) hypertension; I44.7 Left bundle-branch block, unspecified; E78.5 Hyperlipidemia, unspecified; Z82.49 Family history of ischemic heart disease and other diseases of the circulatory system; Z88.2 Allergy status to sulfonamides; Z79.899 Other long term (current) drug therapy; Z72.89 Other problems related to lifestyle ==

== ENCOUNTER → 2021-04-01 | Outpatient (CLI) | payer OTHER, BC | LOC: SJCVC 13:58 | PROVIDERS: ATTEND Internal Medicine Cardiovascular Disease | DX: I44.7 Left bundle-branch block, unspecified (principal); I10 Essential (primary) hypertension; R55 Syncope and collapse; Z88.2 Allergy status to sulfonamides; Z88.8 Allergy status to other drugs, medicaments and biological substances; Z79.899 Other long term (current) drug therapy; Z82.49 Family history of ischemic heart disease and other diseases of the circulatory system; Z72.89 Other problems related to lifestyle ==

== ENCOUNTER → 2021-04-14 | Outpatient (CLI) | payer OTHER, BC ==
[~2021-04-14] VITALS: Ht 160 cm; Wt 50.8 kg
[~2021-04-14] MED LIST changes: +NORVASC5 MG PO
--- NOTE | ~2021-04-14 | P ---
[facility] [address] [place] [address] PROCEDURE REPORT Name: RASHAD OLIVER Room #: REG RAMOS Elizabeth#: [id number] Admission: 04/14/21 Attend Phys: Tobi Villanueva MD Discharge: Date of : 32 Report #: [id number] THIS REPORT FOR: cc: Damon Wynne,Tobi Gomez MD ~ DATE OF SERVICE: 04/14/2021 EP STUDY AND IMPLANTABLE LOOP RECORDER PREOPERATIVE DIAGNOSES: 1. Syncope. 2. Left bundle branch block. 3. History of vasovagal syncope. POSTOPERATIVE DIAGNOSES: 1. Syncope. 2. Left bundle branch block. 3. History of vasovagal syncope. PROCEDURES PERFORMED: 1. Comprehensive EP study, CPT code 37147. 2. Program stimulation pacing after IV drug infusion, CPT code 74975. 3. Implantation of a loop recorder, CPT code 32597. 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 She also has a history of a left bundle branch block, recently had a syncopal episode while flying to [place]. She is here for EP study, possible pacemaker, possible ICD, and possible implantable loop recorder insertion. DESCRIPTION OF PROCEDURE: The patient underwent informed consent. She was then brought to the EP laboratory in a fasting and unsedated state. I obtained access to the right femoral vein x3, placing 3 and 6[place] short sheath using the modified Seldinger technique. Under fluoroscopy, 3 quadripolar catheters were positioned at the RA, His, and RV positions. Next, a basic EP study was performed. At baseline, the patient was in sinus rhythm, sinus cycle length was 690 milliseconds, MS interval 180 milliseconds, QRS duration 135 milliseconds, QT interval 39 milliseconds, AH interval 104 milliseconds, and H-V interval of 41 milliseconds. I measured the H-V interval in multiple locations and the longest H-V interval I could measure was around 48 milliseconds. AV block was noted at 370 milliseconds. Atrial ERP was noted at 280 milliseconds at a 500-millisecond basic drive cycle length with block noted at the level of the AV node. VA block was 400 milliseconds. Ventricular ERP was 300 milliseconds at a 500-millisecond basic drive cycle length. Next, ventricular stimulation was performed and no inducible VT was noted. Isoproterenol infusion was started at [facility] [address] [place] [address] PROCEDURE REPORT Name: RASHAD OLIVER [id number] Admission: 04/14/21 Attend Phys: Tobi Villanueva MD Discharge: Date of : 32 Report #: [id number] 2 mcg per minute. AV block was noted at 350. Atrial ERP was noted at 250 milliseconds at a 400-millisecond basic drive cycle length. Ventricular ERP was noted at 200 milliseconds at a 400-millisecond basic drive cycle length with no inducible VT. As such, she had normal SA bam function, normal AV bam function, normal His-Purkinje function and no inducible arrhythmias on or off isoproterenol. Therefore, I decided to proceed with implantable loop recorder insertion. The patient was therefore prepped in a standard fashion. I injected lidocaine at the incision site. Incision was made. Device was injected under the skin, tested and found to be functioning normally. Single suture and a dressing was placed. The implanted device was [employer] Reveal model number LNQ11, serial number [id number]. CONCLUSION: 1. Comprehensive EP study with normal SA bam function, AV bam function, and normal His-Purkinje function. 2. No inducible atrial or ventricular arrhythmias on or off isoproterenol. 3. Successful implantation of [employer] implantable loop recorder. By: 0922 [id number] Tobi Villanueva MD /nt
[2021-04-14 07:45] VITALS: BP 190/83
[2021-04-14 07:56] LABS: ABSOLUTE NEUTROPHILS 2.2 thou/uL (1.4-8.2); BASOPHILS 0.4 % (0.0-2.0); EOSINOPHILS 1.8 % (0.0-3.0); HEMATOCRIT 40.7 % (37.0-47.0); HEMOGLOBIN 13.3 gm/dL (12.0-15.0); LYMPHOCYTES 32.2 % (24.0-44.0); MCH 32.3 pg (26.0-34.0); MCHC 32.7 g/dL (28.0-37.0); MCV 98.8 fL (80.0-100.0); MONOCYTES 7.8 % (1.0-8.0); PLATELET COUNT 207 thou/uL (150-400); POLYS 57.8 % (36.0-66.0); RBC 4.12 mil/uL (4.20-5.00); RDW 12.8 % (10.5-14.5); WBC 3.9 thou/uL (4.0-11.0)
[2021-04-14 08:02] LABS: CALCIUM 9.2 mg/dL (8.5-10.1); CREATININE 0.6 mg/dL (0.6-1.0); POTASSIUM 3.6 mmol/L (3.5-5.1)
[2021-04-14 08:03] LABS: APTT 24.9 Seconds (24.5-32.8); INR 0.98; PROTIME 10.7 Seconds (10.5-12.1)
[2021-04-14 08:07] LABS: ALBUMIN 3.8 g/dL (3.4-5.0); TOTAL BILIRUBIN 0.6 mg/dL (0.2-1.0); TOTAL PROTEIN 6.8 g/dL (6.4-8.2)
--- NOTE | 2021-04-14 13:17 | NUR ---
PT'S BP HAS BEEN STEADILY INCREASING, THIS POWER MANAGER SPOKE WITH DR. MALONE AND HE GAVE VORB FOR IRBESARTAN 300MG PO NOW AND NORVASC 5MG PO NOW. MEDS GIVEN AND AWAITING RESULTS IN THE BP.
--- NOTE | 2021-04-14 13:34 | NUR ---
PHARMACY BROUGHT [facility] FOR THE IRBESARTAN, PT PREFERRED TO TAKE HER NORMAL IRBESARTAN WHEN SHE GETS HOME, PT IN PROCESS OF BEING DISCHARGED. PT DID TAKE THE NORVASC.
== END | disposition home or self-care (01) ==
LOC: CATH 06:35
PROVIDERS: ATTEND Internal Medicine Cardiovascular Disease
DX: R55 Syncope and collapse (principal); I44.7 Left bundle-branch block, unspecified; I10 Essential (primary) hypertension; Z98.890 Other specified postprocedural states; Z79.899 Other long term (current) drug therapy; Z20.822 Contact with and (suspected) exposure to COVID-19; Z86.73 Personal history of transient ischemic attack (TIA), and cerebral infarction without residual deficits; Z88.2 Allergy status to sulfonamides; Z88.8 Allergy status to other drugs, medicaments and biological substances
CPT/HCPCS: 62110; 62900; 70005

== ENCOUNTER → 2021-05-05 | Outpatient (CLI) | payer OTHER, BC | LOC: NUC 09:01 | PROVIDERS: ATTEND Physician Assistant | DX: M81.0 Age-related osteoporosis without current pathological fracture (principal) ==

== ENCOUNTER → 2021-07-16 | Outpatient (CLI) | payer OTHER, BC | LOC: SJCVC 11:06 | PROVIDERS: ATTEND Internal Medicine | DX: R94.31 Abnormal electrocardiogram [ECG] [EKG] (principal); R55 Syncope and collapse; I10 Essential (primary) hypertension; E78.5 Hyperlipidemia, unspecified; I44.7 Left bundle-branch block, unspecified; Z72.89 Other problems related to lifestyle; Z79.899 Other long term (current) drug therapy; Z88.2 Allergy status to sulfonamides; Z88.8 Allergy status to other drugs, medicaments and biological substances; Z82.49 Family history of ischemic heart disease and other diseases of the circulatory system ==